=== PATIENT | male | born 1990 ===

== ENCOUNTER 2024-12-07 14:17 | Emergency (ER) | payer OTHER ==
[~2024-12-07] VITALS: Ht 193 cm; Wt 101.2 kg
[2024-12-07] MEDS ORDERED: Ketorolac Tromethamine 15mg Vial IV ONE (17:35)
[2024-12-07] MEDS ORDERED: HYDROmorphone HCl/Pf 1MG SYR IV ONE (18:00)
[2024-12-07] MEDS ORDERED: NS 1,000 ML IV SCH (18:00)
[2024-12-07] MEDS ORDERED: RX Prepack 6 Tabs Oxycodone 5mg UD ONE ×3 (21:15→23:55)
[2024-12-07] MEDS ORDERED: ELIQUIS5 M2 PO (23:26)
== END 2024-12-07 23:56 | disposition home or self-care (01) ==
LOC: ER 14:17
DX: I82.452 Acute embolism and thrombosis of left peroneal vein (principal); R10.30 Lower abdominal pain, unspecified
CPT/HCPCS: 71275; 74174; 86850; 86900; 86901; 93970; A9270; J1171; J1885; J7030; Q9967